=== PATIENT | female | born 1940 | race Caucasian/White ===

== ENCOUNTER 2017-10-17 23:28 | Inpatient (IN) | payer MEDICARE, BC ==
[~2017-10-17] VITALS: Ht 162.6 cm; Wt 67.1 kg
[~2017-10-17 23:28] MED LIST: ALPRAZOLAM 0.0.25 MG PO; ASPIRIN325; ASPIRIN325 PO; AVELOX 400 MG400 M1 PO; AZITHROMYCIN 2250 MG PO; CEFDINIR300 MG PO; COMBIVENT; COUGH MEDICATION; DUONEB 2.5-0.5 M3 ML INH; GLUCOPHAGE500 MG PO; GLYBURIDE 2.52.5 MG PO; KEFLEX500 MG PO; LEVAQUIN 500 M500 M4 PO; LISINOPRIL5 MG PO; PREDNISONE 10 M10 M1 PO; PREDNISONE 10 M10 MG PO; VENTOLIN HFA 1818 GM INH; [UNRECOGNIZED DRUG - OTHER]; [UNRECOGNIZED DRUG - OTHER] PO
[2017-10-17 23:29] VITALS: BP 145/75
[2017-10-17] MEDS ORDERED: AMARYL4 MG PO (23:39)
[2017-10-17 23:49] LABS: ABSOLUTE BASOPHILS 0.1 thou/uL (0.0-0.2); ABSOLUTE EOSINOPHILS 0.2 thou/uL (0.0-0.7); ABSOLUTE LYMPHOCYTES 1.8 thou/uL (0.8-5.3); ABSOLUTE MONOCYTES 0.5 thou/uL (0.0-1.2); ABSOLUTE NEUTROPHILS 7.1 thou/uL (1.6-8.1); BASOPHILS 0.8 %; HEMOGLOBIN 13.2 gm/dL (12.0-15.0); LYMPHOCYTES 18.4 %; MCH 30.4 pg (26.0-34.0); MONOCYTES 5.1 %; MPV 7.2 fl. (7.2-11.1); NUCLEATED RBCS 0 /100WBC; PLATELET COUNT* 238 thou/uL (150-400); POLYS 73.7 %; RBC 4.35 mil/uL (4.20-5.00); RDW-CV 14.1 % (10.5-14.5); WBC 9.7 thou/uL (4.0-11.0)
[2017-10-17 23:57] LABS: CREATININE 1.1 mg/dL (0.6-1.3); POTASSIUM 4.4 mmol/L (3.5-5.1)
[2017-10-18] VITALS (17 sets, daily range): BP systolic 109–153; BP diastolic 45–71
[2017-10-18] LABS: PROTIME 9.4 Seconds (9.20-11.50)
[2017-10-18 00:02] LABS: URINE BILIRUBIN NEGATIVE (Negative); URINE BLOOD TRACE (Negative); URINE CLARITY CLEAR; URINE COLOR YELLOW; URINE GLUCOSE-RANDOM NEGATIVE (Negative); URINE KETONES NEGATIVE (Negative); URINE LEUKOCYTES-REFLEX 1+ (Negative); URINE NITRITE-REFLEX NEGATIVE (Negative); URINE PROTEIN NEGATIVE (Negative); URINE UROBILINOGEN 0.2 E.U./dl (0.2-1.0)
[2017-10-18 00:08] LABS: ALBUMIN 3.5 g/dL (3.4-5.0); TOTAL BILIRUBIN 0.2 mg/dL (<0.1-1.0); TROPONIN-I LEVEL 0.21 ng/mL (<0.06)
[2017-10-18 00:28] LABS: BACTERIA-REFLEX >30 Many /HPF (None Seen); CASTS None Seen /LPF (None Seen); CRYSTALS None Seen /LPF (None Seen); MUCUS 0-3 Light strn/LPF (None Seen); SQUAMOUS 0-3 Few /LPF (0-3); URINE RBC 3-10 Few /HPF (0-2); URINE WBC-REFLEX >25 Many /HPF (0-5); WBC CLUMPS Few (None Seen)
--- NOTE | 2017-10-18 06:18 | NUR ---
RECEIVED REPORT FROM ED NURSE. PT TRANSFERRED TO ROOM 215 VIA CART. PT A&OX4. VSS. ADMISSION HISTORY & ASSESSMENT COMPLETED AND CHARTED. PT ON O2 VIA NC @ 2LPM. PT TRACING SR ON TELE. PT ON HEPARIN DRIP PER MAY. PT ORIENTED TO ROOM/ CALL LIGHT. PT COMPLAINED OF CHEST PAIN WITH PAIN SCALE OF 2/10. INSTRUCTED ON NPO FOR CARDIO CONSULT. PT HAS CRITICAL RESULT-TROPONIN 5.11-DR MONTERO INFORMED WITH NO NEW ORDER. CALL LIGHT WITHIN REACH.BED IN LOW POSITION.
--- NOTE | 2017-10-18 13:25 | EKG ---
[place] [address] ELECTROCARDIOGRAM REPORT Name: RAYMOND RODRIGUES Room: [address] ADM IN .R.#: [id number] Admission: 10/18/17 Attend Phys: Demetrio Vincent MD Discharge: Date of : 40 Report #: [id number] THIS REPORT FOR: //name// [facility] ED Test Date: 2017-10-17 Test Time: 23:31:15 Pat Name: RAYMOND RODRIGUES Department: Room: [facility] Gender: F Manager Of Quality: : 1940 Requested By: Connie Beltran Order Number: [id number] MD: Jose Roberto Brenner Measurements Intervals [place] Rate: 95 P: 68 CT: 196 QRS: -45 QRSD: 90 T: 107 QT: 330 QTc: 415 Interpretive Statements Sinus rhythm Atrial premature complex Probable left atrial enlargement Left anterior fascicular block Anteroseptal infarct, age indeterminate Compared to ECG 10/03/2016 21:04:57 Atrial premature complex(es) now present Myocardial infarct finding still present Electronically Signed On 10-18-2017 13:24:44 CDT by Jose Roberto Brenner [email or web address] <ELECTRONICALLY SIGNED> By: Jose Roberto Brenner MD, [facility] 10/18/17 1324 2331 2331 Jose Roberto Brenner MD, [facility] /EPI
--- NOTE | 2017-10-18 13:25 | EKG ---
[place] [address] ELECTROCARDIOGRAM REPORT Name: RAYMOND RODRIGUES Room: [address] ADM IN .R.#: [id number] Admission: 10/18/17 Attend Phys: Demetrio Vincent MD Discharge: Date of : 40 Report #: [id number] THIS REPORT FOR: //name// [facility] ED Test Date: 2017-10-18 Test Time: 00:43:11 Pat Name: RAYMOND RODRIGUES Department: Room: [facility] Gender: F Multifocal Lens Assembler: : 1940 Requested By: Connie Beltran Order Number: [id number] MD: Jose Roberto Brenner Measurements Intervals [place] Rate: 72 P: 69 [place]: 196 QRS: -35 QRSD: 84 T: 122 QT: 376 QTc: 412 Interpretive Statements Sinus rhythm Atrial premature complex Probable left atrial enlargement Left axis deviation Anteroseptal infarct, age indeterminate Electronically Signed On 10-18-2017 13:25:24 CDT by Jose Roberto Brenner [email or web address] <ELECTRONICALLY SIGNED> By: Jose Roberto Brenner MD, [facility] 10/18/17 1325 0043 0043 Jose Roberto Brenner MD, FAC /EPI
--- NOTE | 2017-10-18 13:29 | EKG ---
[place] [address] ELECTROCARDIOGRAM REPORT Name: RAYMOND RODRIGUES Room: [address] ADM IN M.R.#: [id number] Admission: 10/18/17 Attend Phys: Demetrio Vincent MD Discharge: Date of : 40 Report #: [id number] THIS REPORT FOR: //name// [facility] Test Date: 2017-10-18 Test Time: 11:49:13 Pat Name: RAYMOND RODRIGUES Department: Room: [address] Gender: F Director Of Education: : 1940 Requested By: Jose Roberto Brenner Order Number: [id number] Carolyne MD: Jose Roberto Brenner Measurements Intervals [place] Rate: 63 P: 47 [place]: 199 QRS: -41 QRSD: 82 T: 83 QT: 451 QTc: 462 Interpretive Statements Sinus rhythm Probable left atrial enlargement Left anterior fascicular block Anteroseptal infarct, age indeterminate Electronically Signed On 10-18-2017 13:29:00 CDT by Jose Roberto Brenner [email or web address] <ELECTRONICALLY SIGNED> By: Jose Roberto Brenner MD, [facility] 10/18/17 1329 1149 1149 Jose Roberto Brenner MD, FAC /EPI
--- NOTE | 2017-10-18 15:46 | NUR ---
Pt is A&O. Resides at home alone. Independent with ADLs. No DME. Hx of [facility]. No hx of SNF. Pt stated that she will dc to home tomorrow. No needs.
--- NOTE | 2017-10-18 17:52 | NUR ---
RECEIVED REPORT FROM REBECA SEO. ASSUMED CARE OF PT AROUND O730. PT A&O X4. VSS. O2 SAT 94% ON 2L PER NC THIS AM, PT TITRATED UP TO 3L PER NC AFTER CARDIAC CATH. CARDIAC MOITOR IN PLACE TRACING SR WITH NO CHANGES THIS SHIFT. AM ASSESSMENT AND VITALS COMPLETED CHARTED. IV TO RIGHT FA INTACT AND INFUSING IVF. PT HAS DENIED PAIN OR DISCOMFORT THROUGHOUT THE SHIFT. PT WENT DOWN FOR CARDIAC CATH AROUND 0900 THIS AM AND RETURNED AROUND 1100, RIGHT GROIN SITE CDI, NO HEMATOMA, SOFT AND NON-TENDER. PT OFF BEDREST NOW. UP WITH SBA TO BATHROOM, VOIDING WITHOUT ISSUE. FAMILY VISITED THIS AFTERNOON. PT EATING AND DRINKING WITHOUT ISSUE. PT HAS HAD NO CHEST PAIN THIS SHIFT. PT CURRENTLY RESTING IN BED WATCHIN TV. FALL PRECAUTIONS IN PLACE. CALL LIGHT IS WITHIN REACH. HOURLY ROUNDING PERFORMED. WCTM FOR DURATION OF SHIFT.
--- NOTE | 2017-10-18 18:03 | CARD ---
[address] [address] CARDIAC CATH REPORT Name: RAYMOND RODRIGUES Masha Room: [address] IN [facility]#: [id number] Admission: 10/18/17 Attend Phys: Demetrio Vincent MD Discharge: Date of : 40 Report #: [id number] THIS REPORT FOR: //name// APPROVED REPORT Study performed: 10/18/2017 08:41:02 Patient Details Patient Status: In-Patient Room #: The patient is a 77 year-old female Event Personnel Jose Roberto Brenner Glassblower, Elvira Soto RN Attendant Honor Bar, Lauren Baker RTR ScrubKirsty Jessica RTR Monitor, Rashard Mead ARRT (R) Monitor Procedures Performed Left Heart Catheterization including Bypass Grafts, PTCA with Stenting Indication Non-STEMI , Chest pain Risk Factors Arterial Hypertension, Hypercholesterolemia Previous Procedures/Diagnoses Previous CABG Admission/Lab Medications/Medications given during procedure Glycoprotein IllbIlla Inhibitors, Heparin Unfract. Procedure Narrative The patient was brought electively to the Cardiac Catheterization Laboratory and was prepped and draped in a sterile manner. The right femoral was infiltrated with 2% Lidocaine subcutaneous anesthesia. A 6fr Ultimum Sheath sheath was inserted into the right femoral artery. Coronary angiography was performed using coronary diagnostic catheters. The right coronary system was accessed and visualized with a 6 FR JR4 catheter. The left coronary system was accessed and visualized with a 6 FR JL4 catheter. The left ventricle was accessed and visualized with a 6 FR PIGTAIL catheter. Left ventricular/Aortic Valve gradient assessed via catheter pullback. Left ventriculogram was performed in TRUJILLO projection. [place] [address] CARDIAC CATH REPORT Name: RAYMOND RODRIGUES Room: [address]#: [id number] Admission: 10/18/17 Attend Phys: Demetrio Vincent MD Discharge: Date of : 40 Report #: [id number] was performed. Pre-demployment femoral angiogram was performed . Closure device was deployed with a 6Fr Fr Angioseal STS 6Fr. The patient tolerated the procedure well and there were no complications associated with the procedure. There was no hematoma. single SVG identified with the jr4 catheter and appeared to be chronicall occluded. Heck graft was cannulated with a 6 fr heck catheter. Intraoperative Conscious Sedation Sedation start time: 9:25 Case end Time: 10:36 Versed 2 mg Fluoro Time: 13.7 minutes Dose: DAP 53088 cGycm2 1084 mGy Contrast Type and Amount: Omnipaque 230 ml Coronary Angiography The patient's coronary anatomy is right dominant. Nikolai Artery Percent Stenosis Patent heck graft noted to the lad, although retrograde filled a diagonal branch and a 90% stenosis noted in the lad before the diagonal artery. A single SVG was identified that appeared to extend toward the circumflex and appeared chronically occluded Diagnostic Cath Left Main 90% distal stenosis noted LAD 90% proximal stenosis Circumflex 90% proximal stenosis and 90% stenosis after a small marginal branch OM2 100% occluded and filled by collaterals Right Coronary 60% proximal, 90% mid, and 90% after the RV branch Left Ventriculography The left ventricular ejection fraction is estimated to be 60-65%. Left ventricular wall motion abnormalities are not present. There is 1+ mitral insufficiency. aortic root injection appeared to show no patent svg's and no AI Hemodynamics The aortic pressure is 130/50 mmHg with a mean of 81 mmHg. The left ventricular pressure is 108/-1 mmHg with a mean of mmHg. The left ventricular end diastolic pressure is 12 mmHg. There was no gradient across the aortic valve upon pullback[place] [address] CARDIAC CATH REPORT Name: RAVIRAYMOND Masha Room: [address]#: [id number] Admission: 10/18/17 Attend Phys: Demetrio Vincent MD Discharge: Date of : 40 Report #: [id number] ventricle to the aorta revealed no gradient across the aortic valve. PCI Technique Lesion Anticoagulation was achieved with Heparin and Aggrastat. Patient was preloaded with Plavix. Percutaneous coronary intervention was performed on the mid right coronary artery. The lesion stenosis prior to intervention was 90% with GUILLE 3 flow. A jr4 Guide Catheter was used to engage the rca ostium. A Whisper Wire 190CM Interventional Guidewire was used to cross the lesion. BALLOON DILATION A Balloon catheter Trek RX 2.5 X 12 was inserted and inflated up to 12.00atm for 14seconds. Repeat angiography revealed the following post-dilatation results: 80% stenosis. Additional Inflation: 14.00atm for 13seconds. unable to advance BMW wire beyond stenosis, but whisper wire was successful STENT DEPLOYMENT A drug-eluting stent Xience Alpine RX 3.0X38 was inserted and inflated up to 12.00atm for 14seconds. Repeat angiography revealed the following post-stent deployment results: 0% stenosis. Additional Inflation: 18.00atm for 21seconds. Additional Inflation: 20.00atm for 17seconds. Final angiography reveals 0 % stenosis with GUILLE 3 flow. Conclusion 1. 90% stenosis of the distal left main, proximal lad, and proximal circumflex 2. 2 sequential 90% stenosis noted in the rca 3. patent heck graft to the lad 4. all svg's appeared to be chronically occluded 5. successful placement of a long drug eluting stent in the rca Recommendations return in 1 week for stenting to the left main and proximal circumflex Medications Administered Clopidogrel <ELECTRONICALLY SIGNED> By: Jose Roberto Brenner MD, FACC 10/18/171802 02 1803Dmarcia Brenner MD, FAC /INF
[2017-10-19] VITALS (9 sets, daily range): BP systolic 99–155; BP diastolic 43–66
[2017-10-19 03:24] LABS: HEMATOCRIT 35.9 % (37.0-47.0); HEMOGLOBIN 11.8 gm/dL (12.0-15.0); MCH 30.5 pg (26.0-34.0); MCHC 32.8 g/dL (28.0-37.0); MCV 93.2 fL (80.0-100.0); MPV 7.5 fl. (7.2-11.1); RBC 3.85 mil/uL (4.20-5.00); RDW-CV 14.6 % (10.5-14.5); WBC 6.8 thou/uL (4.0-11.0)
[2017-10-19 03:51] LABS: ANION GAP 8 mmol/L (7-16); BUN 15 mg/dL (7-18); CALCIUM 8.4 mg/dL (8.5-10.1); CHLORIDE 107 mmol/L (98-107); CHOLESTEROL 201 mg/dL (<200); CO2 27 mmol/L (21-32); CREATININE 0.7 mg/dL (0.6-1.3); GLUCOSE 118 mg/dL (70-99); HDL CHOLESTEROL 41 mg/dL (>40); LDL CHOLESTEROL 136 mg/dL (<100); MAGNESIUM 1.8 mg/dL (1.8-2.4); POTASSIUM 4.6 mmol/L (3.5-5.1); SODIUM 142 mmol/L (136-145); TC:HDL 4.9 Ratio (Not establshd); TRIGLYCERIDE 124 mg/dL (<150); VLDL 25 mg/dL (<40)
[2017-10-19 03:52] LABS: SERUM ASSESSMENT Clear
--- NOTE | 2017-10-19 06:14 | NUR ---
ASSUMED CARE OF PT AFTER REPORT AT 1930. PT A&OX4. VSS. PHYSICAL ASSESSMENT COMPLETED AND CHARTED. PT ON NC 2L WITH 92% O2 SAT. PT TRACING SB ON TELE. PT UP STANDBY ASSIST. POST CATH SITE TO LEFT GROIN CLEAN, DRY & INTACT WITH SOME BRUISING AND NON TENDER.DENIES ANY PAIN OR COMLPAIN. HOURLY ROUNDING OBSERVED.HS REST & SAFETY GOAL ACHIEVED. CALL LIGHT WITHIN REACH. BED IN LOW POSITION.
--- NOTE | 2017-10-19 08:10 | NUR ---
PT RESTIUNG IN BED, APPEARS ALERT O X 4, DENIES CHEST PAIN, SOB, PAIN OR DISCOMFORT, R GROIN CATH SITE APPEARS SOFT INTACT WITHOUT EVIDENCE OF BLEEDING ,R FOOT WARM , O2 AT 2L PER NC, PT HOPING TO D/C THIS AM, PLAN ON REPEAT CATH NEXT WEEK, WILL NEED ADDITIONAL STENT PLACEMENT PER REPORT
--- NOTE | 2017-10-19 11:14 | EKG ---
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 Arranger: ARUN : 1940 Requested By: Jose Roberto Brenner Order Number: [id number] Reading MD: Chapito Weinstein Measurements Intervals [place] Rate: 62 P: 67 [place]: 190 QRS: -37 QRSD: 82 T: 79 QT: 428 QTc: 435 Interpretive Statements Sinus rhythm Probable left atrial enlargement Left axis deviation Anteroseptal infarct, age indeterminate Compared to ECG 10/18/2017 11:49:13 Left-axis deviation now present Left anterior fascicular block no longer present Myocardial infarct finding still present Electronically Signed On 10-19-2017 11:14:19 CDT by Chapito Weinstein [email or web address] <ELECTRONICALLY SIGNED> By: Gemma Weinstein MD, [facility] 10/19/17 1114 0656 0656 Gemam Weinstein MD, [facility] /EPI
[2017-10-19] MEDS ORDERED: NITROGLYCERIN0.4 MG SUBLING (11:54)
[2017-10-19] MEDS ORDERED: LOPRESSOR25 PO (11:59)
[2017-10-19] MEDS ORDERED: PLAVIX 75 MG TA75 M1 PO (12:01)
[2017-10-19] MEDS ORDERED: ZETIA10 MG PORT (12:04)
[2017-10-19] MEDS ORDERED: AUGMENTIN200 MG/51 PO (12:52)
--- NOTE | 2017-10-22 17:19 | CON ---
[address] [address] CONSULTATION Name: RAVIRAYMOND N Room: [address] IN .R.#: [id number] Admission: 10/18/17 Attend Phys: Demetrio Vincent MD Discharge: 10/19/17 Date of : 40 Report #: [id number] THIS REPORT FOR: //name// CC: Demetrio Jain DATE OF SERVICE: 10/18/2017 HISTORY OF PRESENT ILLNESS: The patient is a 77-year-old single white female who came to the Emergency Room last night complaining of chest pain. The history is obtained from the patient. No old records are available. However, the patient states she presented in 1999 with fatigue. She was found to have coronary artery disease. She underwent quadruple coronary artery bypass surgery at [facility]. She did well with her surgery. She did require thoracentesis. She was previously followed by Dr. Sanders. However, she has not had a stress test nor seen a vice president of news for years. She was actually admitted here to [place] a year ago with bronchitis. She is not very active because of chronic back pain. However, she continues to live by herself and care for herself. She notes that she has only rarely had chest pain. However, 2 nights ago, she had an episode of chest pressure that lasted several hours. Again, last night, she had an episode of chest pressure that made her nauseated. She vomited. She denied any shortness of breath, diaphoresis. The discomfort extended into her arms. She was finally brought by private vehicle to the Emergency Room. She was started on IV heparin. I was asked to see her for further evaluation and treatment. She denied the pain being related to food. She has had no cough or blood in her stool. She denied exertional dyspnea, palpitations, syncope or leg pain. PAST MEDICAL HISTORY: Otherwise significant for appendectomy, hernia repair, hysterectomy, hypertension, diabetes, hyperlipidemia. MEDICATIONS: On admission consisted of metformin, Xanax, aspirin, lisinopril, DuoNeb treatments included provide. ALLERGIES/INTOLERANCES: SHE COULD NOT TOLERATE STATIN IN THE PAST, WHICH MADE HER MUSCLES ACHE. FAMILY HISTORY: Her brother had heart disease. SOCIAL HISTORY: She is , lives in [place]. Quit smoking years ago, rarely drinks alcohol. REVIEW OF SYSTEMS: She apparently had a stroke in 2003, when she fell. She has had no recurrences. She has a history of COPD. No stomach ulcer. No liver disease, no kidney disease, no cancer[place] [address] CONSULTATION Name: RAYMOND RODRIGUES Masha Room: [address] IN ..#: [id number] Admission: 10/18/17 Attend Phys: Demetrio Vincent MD Discharge: 10/19/17 Date of : 40 Report #: [id number] PHYSICAL EXAMINATION: GENERAL: Elderly, frail-appearing female ,lying in bed. She appeared in no acute distress. VITAL SIGNS: She had a blood pressure of 120/70, pulse 60. She is afebrile. HEENT: She was anicteric, conjunctivae are pink. Mucous membranes are moist. NECK: Veins nondistended. Bilateral carotid bruits were heard. NECK: Supple. CHEST: Clear to auscultation. CARDIOVASCULAR: Regular rate and rhythm, no murmur. ABDOMEN: Soft, nontender. EXTREMITIES: Had no edema. Dorsalis pedis pulses cannot be palpated. SKIN: Cool and dry. NEUROLOGIC: Nonfocal. LYMPH: No adenopathy. MUSCULOSKELETAL: No joint effusions. PSYCHIATRIC: Mood is appropriate. DIAGNOSTIC DATA: Her ECG on admission showed sinus rhythm, ST segment depression of a mm in V4 and V5, that was new since ECG of 09/2016. Her workup in the emergency room last night, she had a portable chest x-ray that showed cardiomegaly, mild pulmonary edema. LABORATORY DATA: Showed sodium 135, creatinine 1.1, glucose 229. Her liver function studies were normal. Troponin on admission was 0.21, this morning at 6.8. Her white blood cell count 9.7, hemoglobin 13.2. IMPRESSION AND RECOMMENDATIONS: 1. Non-ST segment elevation myocardial infarction. Recommend cardiac catheterization. 2. Hypertension. The patient has been on RIOS inhibitor. 3. Diabetes. 4. Hyperlipidemia. THE PATIENT COULD NOT TOLERATE STATIN DRUGS. 5. Previous stroke. Recommend repeat carotid Doppler. 6. Chronic obstructive pulmonary disease. <ELECTRONICALLY SIGNED> By: Jose Roberto Brenner MD, [facility] 10/22/17 1719 0833 1954Dmarcia Brenner MD, FACC /nt
== END 2017-10-19 13:19 | disposition home or self-care (01) | DRG 246 ==
LOC: M.ERS 23:28 → M.TBA-ER 10-18 00:27 → M.2W 10-18 00:27
PROVIDERS: Emergency Medicine; ADMIT Internal Medicine
PROC: 027034Z Dilation of Coronary Artery, One Artery with Drug-eluting Intraluminal Device, Percutaneous Approach (ICD-10-PCS; principal; 2017-10-18)
PROC: B2151ZZ Fluoroscopy of Left Heart using Low Osmolar Contrast (ICD-10-PCS; principal; 2017-10-18)
PROC: B2181ZZ Fluoroscopy of Left Internal Mammary Bypass Graft using Low Osmolar Contrast (ICD-10-PCS; principal; 2017-10-18)
PROC: B2121ZZ Fluoroscopy of Single Coronary Artery Bypass Graft using Low Osmolar Contrast (ICD-10-PCS; principal; 2017-10-18)
PROC: B2111ZZ Fluoroscopy of Multiple Coronary Arteries using Low Osmolar Contrast (ICD-10-PCS; principal; 2017-10-18)
PROC: 4A023N7 Measurement of Cardiac Sampling and Pressure, Left Heart, Percutaneous Approach (ICD-10-PCS; principal; 2017-10-18)
DX: I21.4 Non-ST elevation (NSTEMI) myocardial infarction (principal); N17.0 Acute kidney failure with tubular necrosis; N39.0 Urinary tract infection, site not specified; E78.5 Hyperlipidemia, unspecified; E78.00 Pure hypercholesterolemia, unspecified; I25.82 Chronic total occlusion of coronary artery; I25.10 Atherosclerotic heart disease of native coronary artery without angina pectoris; J44.9 Chronic obstructive pulmonary disease, unspecified; E11.9 Type 2 diabetes mellitus without complications; Z79.2 Long term (current) use of antibiotics; Z86.73 Personal history of transient ischemic attack (TIA), and cerebral infarction without residual deficits; Z79.82 Long term (current) use of aspirin; Z79.899 Other long term (current) drug therapy; Z88.2 Allergy status to sulfonamides; Z95.1 Presence of aortocoronary bypass graft; Z87.891 Personal history of nicotine dependence; Z90.710 Acquired absence of both cervix and uterus; Z82.49 Family history of ischemic heart disease and other diseases of the circulatory system

== ENCOUNTER 2017-10-25 07:42 | Inpatient (IN) | payer MEDICARE, BC ==
[~2017-10-25] VITALS: Ht 162.6 cm; Wt 63.0 kg
[2017-10-25] VITALS (13 sets, daily range): BP systolic 15–169; BP diastolic 47–67
[~2017-10-25 07:42] MED LIST changes: +AMARYL4 MG PO; +AUGMENTIN200 MG/51 PO; +LOPRESSOR25 PO; +NITROGLYCERIN0.4 MG SUBLING; +PLAVIX 75 MG TA75 M1 PO; +ZETIA10 MG PORT
[2017-10-25 08:36] LABS: HEMATOCRIT 41.2 % (37.0-47.0); HEMOGLOBIN 13.6 gm/dL (12.0-15.0); MCH 30.4 pg (26.0-34.0); MCV 92.1 fL (80.0-100.0); MPV 7.7 fl. (7.2-11.1); RBC 4.48 mil/uL (4.20-5.00); RDW-CV 13.9 % (10.5-14.5); WBC 6.8 thou/uL (4.0-11.0)
[2017-10-25 08:47] LABS: ANION GAP 8 mmol/L (7-16); BUN 17 mg/dL (7-18); CALCIUM 9.1 mg/dL (8.5-10.1); CHLORIDE 102 mmol/L (98-107); CO2 26 mmol/L (21-32); CREATININE 0.7 mg/dL (0.6-1.3); GLUCOSE 177 mg/dL (70-99); POTASSIUM 4.3 mmol/L (3.5-5.1); SODIUM 136 mmol/L (136-145)
[2017-10-25 08:48] LABS: APTT 29.4 Seconds (25.0-31.3)
[2017-10-25 08:52] LABS: ALKALINE PHOSPHATASE 100 U/L (46-116); CHOLESTEROL 217 mg/dL (<200); HDL CHOLESTEROL 40 mg/dL (>40); LDL CHOLESTEROL 138 mg/dL (<100); SGOT 18 U/L (15-37); SGPT 32 U/L (30-65); TC:HDL 5.4 Ratio (Not establshd); TOTAL BILIRUBIN 0.3 mg/dL (<0.1-1.0); TOTAL PROTEIN 7.8 g/dL (6.4-8.2); TRIGLYCERIDE 199 mg/dL (<150); VLDL 40 mg/dL (<40)
[2017-10-25 08:54] LABS: SERUM ASSESSMENT Clear
--- NOTE | 2017-10-25 15:15 | EKG ---
[place] [address] ELECTROCARDIOGRAM REPORT Name: RAVIRAYMOND Masha Room: [address] ADM IN [facility].#: [id number] Admission: 10/25/17 Attend Phys: Jose Roberto Brenner MD, F Discharge: Date of : 40 Report #: [id number] THIS REPORT FOR: //name// [facility] Test Date: 2017-10-25 Test Time: 08:15:04 Pat Name: RAYMOND RODRIGUES Department: Room: [facility] Gender: F Document Management Technician: : 1940 Requested By: Jose Roberto Brenner Order Number: [id number] Reading MD: Jose Roberto Brenner Measurements Intervals [place] Rate: 46 P: 0 [place]: 199 QRS: -29 QRSD: 91 T: 75 QT: 481 QTc: 421 Interpretive Statements Sinus bradycardia Probable left atrial enlargement Borderline left axis deviation Anteroseptal infarct, old Nonspecific T abnormalities, lateral leads Compared to ECG 10/19/2017 06:56:27 T-wave abnormality now present Sinus rhythm no longer present Myocardial infarct finding still present Electronically Signed On 10-25-2017 15:15:01 CDT by Jose Roberto Brenner [email or web address] <ELECTRONICALLY SIGNED> By: Jose Roberto Brenner MD, [facility] 10/25/17 1515 4 4 Jose Roberto Brenner MD, [facility] /EPI
--- NOTE | 2017-10-25 15:24 | EKG ---
[place] [address] ELECTROCARDIOGRAM REPORT Name: RAYMOND RODRIGUES Room: [address] ADM IN ..#: [id number] Admission: 10/25/17 Attend Phys: Jose Roberto Brenner MD, F Discharge: Date of : 40 Report #: [id number] THIS REPORT FOR: //name// [facility] Test Date: 2017-10-25 Test Time: 14:36:09 Pat Name: RAYMOND RODRIGUES Department: Room: [address] Gender: F Recruitment Advertising Manager: : 1940 Requested By: Jose Roberto Brenner Order Number: [id number] Reading MD: Jose Roberto Brenner Measurements Intervals [place] Rate: 51 P: 72 [place]: 207 QRS: -34 QRSD: 90 T: 102 QT: 439 QTc: 405 Interpretive Statements Sinus bradycardia Probable left atrial enlargement Left axis deviation Anteroseptal infarct, age indeterminate Electronically Signed On 10-25-2017 15:24:38 CDT by Jose Roberto Brenner [email or web address] <ELECTRONICALLY SIGNED> By: Jose Roberto Brenner MD, [facility] 10/25/17 1524 1436 1436 Jose Roberto Brenner MD, FACC /EPI
--- NOTE | 2017-10-25 16:34 | CARD ---
[address] [address] CARDIAC CATH REPORT Name: RAYMOND RODRIGUES Masha Room: [address] IN [facility]#: [id number] Admission: 10/25/17 Attend Phys: Jose Roberto Brenner MD, F Discharge: Date of : 40 Report #: [id number] THIS REPORT FOR: //name// APPROVED REPORT Study performed: 10/25/2017 10:07:16 Patient Details Patient Status: Out-Patient Room #: The patient is a 77 year-old female Event Personnel Jose Roberto Brenner Sunglass Clip Attacher, Rashard Mead (Kirsty Ng Jessica RTR Monitor, Ghada Carrington RN Software Technical Lead, Gypsy Don RN Software Technical Lead Procedures Performed Art Access - L femoral artery* Left Heart Cath Coronaries, Bypass Grafts LHCCORCABG BMS Revasc Grafts Single CIRC BMREVSVGSG BMS Revasc 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 Procedure Narrative The patient was brought electively to the Cardiac Catheterization Laboratory and was prepped and draped in a sterile manner. The left femoral was infiltrated with 2% Lidocaine subcutaneous anesthesia. A 6fr Ultimum Sheath sheath was inserted into the left femoral artery. Coronary angiography was performed using coronary diagnostic catheters. The right coronary system was accessed and visualized with a JR4 6FR catheter. The left coronary system was accessed and visualized with a 6FR XB 3.5 100CM catheter. Left ventricular/Aortic Valve gradient assessed via catheter pullback. Closure device was deployed with a 6 Fr Angioseal STS 6Fr. The patient tolerated the procedure well and there were [place] [address] CARDIAC CATH REPORT Name: RAVIRAYMOND Masha Room: [address]#: [id number] Admission: 10/25/17 Attend Phys: Jose Roberto Brenner MD, F Discharge: Date of : 40 Report #: [id number] procedure. There was no hematoma. Intraoperative Conscious Sedation Sedation start time: 10:50 Case end Time: 12:00 Versed 2 mg Fluoro Time: 13.1 minutes Dose: DAP [id number] cGycm2 1513 mGy Contrast Type and Amount: Omnipaque 290 ml Coronary Angiography The patient's coronary anatomy is right dominant. [place] Artery Percent Stenosis Arteriogram 1 week previously had demonstrated a patent TAVAREZ graft to the LAD. All SVG's were felt to be occluded. Diagnostic Cath Left Main 90% distal stenosis LAD 99% proximal stenosis with competitive flow from the TAVAREZ graft Circumflex 95% proximal stenosis and 95% stenosis after a small marginal branch Right Coronary long stent in the mid RCA was patent with a 30% stenosis noted in the mid RCA beyond the stent Left Ventriculography Left Ventriculography was not performed. Hemodynamics The aortic pressure is 135/44 mmHg with a mean of 52 mmHg. The left ventricular pressure is 144/14 mmHg with a mean of mmHg. The left ventricular end diastolic pressure is 14 mmHg. There was no gradient across the aortic valve upon pullback. Pullback from the left ventricle to the aorta revealed no gradient across the aortic valve. PCI Technique Lesion Anticoagulation was achieved with Heparin. Patient was preloaded with Plavix. Percutaneous coronary intervention was performed on the mid circumflex artery segment. The lesion stenosis prior to intervention was 95% with GUILLE 3 flow. A 6FR XB 3.5 100CM Guide Catheter was used to engage the lm ostium. A IG: BMW 300cm Interventional Guidewire was [place] [address] CARDIAC CATH REPORT Name: RAYMOND RODRIGUES Room: [address]#: [id number] Admission: 10/25/17 Attend Phys: Jose Roberto Brenner MD, F Discharge: Date of : 40 Report #: [id number] BALLOON DILATION A Balloon catheter 2.0 x 8 mm was inserted and inflated up to 14.00atm for 16seconds. Repeat angiography revealed the following post-dilatation results: 70% stenosis. Additional Inflation: 16.00atm for 13seconds. Additional Inflation: 18.00atm for 12seconds. Unable to advance stent to area of stenosis. Additional balloon inflations were performed with a 2.25 x 12 mm NC balloon to high pressures because of the calcified vessel. STENT DEPLOYMENT A drug-eluting stent Xience Alpine RX 2.25X12 was inserted and inflated up to 22.00atm for 8seconds. Repeat angiography revealed the following post-stent deployment results: 0% stenosis. Ryan wire was required to advance the stent because of tortuosity of the circumflex Final angiography reveals 0 % stenosis with GUILLE 3 flow. PCI Technique Lesion 2 Percutaneous Coronary Intervention was performed on the proximal circumflex artery segment. Patient was preloaded with Plavix. Percutaneous coronary intervention was performed on the proximal circumflex artery segment. The lesion stenosis prior to intervention was 95% with GUILLE 3 flow. A 6FR XB 3.5 100CM Guide Catheter was used to engage the ostium. A IG: BMW 300cm Interventional Guidewire was used to cross the lesion. Stent Deployment A drug-eluting stent Xience Alpine RX 2.25X12 was inserted and inflated up to 18.00atm for 23seconds. Repeat angiography revealed the following post-stent deployment results: 0% stenosis. Additional Inflation: 22.00atm for 13seconds. Final angiography reveals 0 % stenosis with GUILLE 3 flow. PCI Technique Lesion 3 Percutaneous Coronary Intervention was performed on the LM. Patient was preloaded with Plavix. Percutaneous coronary intervention was performed on the left main coronary artery. The lesion stenosis prior to intervention was 90% with GUILLE 3 flow. A 6FR XB 3.5 100CM Guide Catheter was used to engage the lm ostium. A IG: BMW 190cm Interventional Guidewire was used to cross the lesion. Stent Deployment A drug-eluting stent Xience Alpine RX 2.5X18 was inserted and inflated up to 9.00atm for 18seconds. Additional Inflation: 18.00atm [address] [address] CARDIAC CATH REPORT Name: RAYMOND RODRIGUES Room: [address] IN Jose.Kaela.#: [id number] Admission: 10/25/17 Attend Phys: Jose Roberto Brenner MD, F Discharge: Date of : 40 Report #: [id number] for 18seconds. Final angiography reveals 0 % stenosis with GUILLE 3 flow. Conclusion 1. patent stent in the RCA 2. successful placement of 3 drug eluting stents that extended from the left main artery into the mid circumflex artery Recommendations Cardiac Rehabilitation Referral Aggressive Medical Therapy Medications Administered Clopidogrel <ELECTRONICALLY SIGNED> By: Jose Roberto Brenner MD, FACC 10/25/17 1634 1634 1634Dmarcia Brenner MD, FACC /INF
--- NOTE | 2017-10-25 18:27 | NUR ---
PT ADMITTED TO ROOM 200 VIA BED AT APPROXIMATELY 1400 FROM [employer]. REPORT RECEIVED FROM GABBI CHAPMAN. PT HAD HEART CATH INTO LEFT GROIN-AREA IS C/D/I WITH SMALL DRIED BLOOD NOTED ON DRESSING. PT COMPLETED BEDREST AND IS NOW GETTING UP WITH 1 ASSIST TO BATHROOM. POST CARDIAC CATH VITALS CHARTED ON FLOOR AND IN CARDIAC [employer]. VITAL SIGNS STABLE. PT A&0X4, DENIES ANY PAIN OR SHORTNESS OF BREATH. TRACING SB ON THE HOUSEMAN. RATE IN THE 50'S. PT ON RA SAT UPPER 90'S. IVF. INPATIENT CARDIAC REHAB HERE TO SEE AND EDUCATE PT. PT ORIENTED TO ROOM AND CALL LIGHT. ADMISSION ASSESSMENT AND HISTORY COMPLETED. REFER TO CHARTING. SEPSIS SCREENING COMPLETE-NEGATIVE. PROBABLE DISCHARGE HOME TOMORROW 10/26. MEDICATIONS PER MAY. PT REPOSITIONS SELF WITH REMINDERS. HOURLY ROUNDING OBSERVED. BED IN LOW POSITION. CALL LIGHT WITHIN REACH. WILL CONTINUE PLAN OF CARE.
[2017-10-26] VITALS: BP 123/69
[2017-10-26 04:00] VITALS: BP 153/63
--- NOTE | 2017-10-26 04:56 | NUR ---
ASSUMED CARE OF PATIENT AT 1900 THE PATIENT REMAINS SB ON THE MONITOR AT REST NOTED IMPROVES TO SR WHEN AWAKE ET AMBULATING O2 SAT MAINTAINED ON RA UP WITH STANDBY ASSIST OF 1 POST CATH GAIT STEADY WITHOUT HX OF FALLS ALLOWED PATIENT TO REVERT TO AMBULATING AD LEXI IN ROOM THE ROUTINE REGIMEN CONTINUES TO BE EFFECTIVE FOR SX MANAGEMENT THE PATIENT PROGRESSES TOWARDS GOALS OF DISCHAARGE SAFETY INTERVENTIONS CONTINUE BED LOWERED WHEELS LOCKED CALL LIGHT IN REACH SIDE RAILS UP REPORT TO BE GIVEN TO [employer] [employer]
[2017-10-26 05:42] LABS: HEMATOCRIT 38.1 % (37.0-47.0); HEMOGLOBIN 12.4 gm/dL (12.0-15.0); MCHC 32.6 g/dL (28.0-37.0); MPV 7.9 fl. (7.2-11.1); RBC 4.14 mil/uL (4.20-5.00); RDW-CV 14.2 % (10.5-14.5); WBC 7.9 thou/uL (4.0-11.0)
[2017-10-26 08:00] VITALS: BP 147/55
[2017-10-26] MEDS ORDERED: BAYER CHEWABLE81 MG PO (10:45)
[2017-10-26 10:51] VITALS: BP 147/55
[2017-10-26 10:58] VITALS: BP 147/55
[2017-10-26] MEDS ORDERED: TYLENOL325 MG PO (11:04)
--- NOTE | 2017-10-26 11:06 | NUR ---
ASSUMED CARE OF PATIENT THIS AM AT 0730. PATIENT IS ALERT AND ORIENTED X 1. SHE DENIES PAIN THIS AM. PATIENT IS ANXIOUS TO DISCHARGE HOME. DR ALEGRIA IN TO ROUND AND DISCHARGE ORDERS WRITTEN. PATIENT IS TO DISCHARGE HOME TODAY. TELE MONITOR SHOWED NSR.
[2017-10-26 12:12] VITALS: BP 134/53
--- NOTE | 2017-10-26 13:36 | EKG ---
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 : 1940 Requested By: Jose Roberto Brenner Order Number: [id number] Reading MD: Jose Roberto Brenner Measurements Intervals [place] Rate: 62 P: 68 OK: 156 QRS: -27 QRSD: 93 T: 105 QT: 441 QTc: 448 Interpretive Statements Sinus rhythm Borderline left axis deviation Anterior infarct, old Nonspecific T abnormalities, lateral leads Compared to ECG 10/25/2017 14:36:09 Sinus bradycardia no longer present Myocardial infarct finding still present Electronically Signed On 10-26-2017 13:36:41 CDT by Jose Roberto Brenner [email or web address] <ELECTRONICALLY SIGNED> By: Jose Roberto Brenner MD, [facility] 10/26/17 1336 0354 0354 Jose Roberto Brenner MD, [facility] /EPI
--- NOTE | 2017-10-27 13:30 | D ---
[address] [address] DISCHARGE SUMMARY Name: RAYMOND RODRIGUES Masha Room: [address] IN M.R.#: [id number] Admission: 10/25/17 Attend Phys: Jose Roberto Brenner MD, F Discharge: 10/26/17 Date of : 40 Report #: [id number] THIS REPORT FOR: //name// CC: Jose Roberto Jain DATE OF SERVICE: 10/26/2017 DISCHARGE DIAGNOSES: 1. Unstable angina. 2. Coronary artery disease. 3. Hypertension. 4. Diabetes. 5. Hyperlipidemia. CONSULTANTS: None. PROCEDURES: Left heart catheterization with placement of 3 drug-eluting stents in the left main artery and circumflex artery via the femoral approach. PRIMARY CARE PHYSICIAN: Dr. Víctor Jain. HISTORY OF PRESENT ILLNESS: The patient is a 77-year-old single white female who was brought to the outpatient department to undergo coronary artery stenting. The patient underwent quadruple coronary artery bypass surgery at [facility] in 1999. The patient has not seen a diathermy equipment repairer for years. She is not very active because of her age and chronic back pain; however, she still lives by herself. She only rarely has chest pain. However, she was admitted on 10/17 after prolonged episode of chest pressure. She became nauseated and vomited. The pain extended into her arms. She called the ambulance and brought here to [facility] on 10/17. She ruled in for a non-STEMI with a troponin of 6.8. I saw her in consultation and felt that she had an indication for cardiac catheterization. This was performed on 10/18 from the right femoral artery. Results showed an ejection fraction of 60-65%. No saphenous vein grafts were identified. There was a patent TAVAREZ graft to the LAD, although retrograde it filled the diagonal branch, and there was a 90% stenosis prior to the takeoff of the diagonal. The left main artery had a distal 90% stenosis. The LAD had a proximal 90% stenosis with competitive flow from the TAVAREZ graft. Circumflex had a proximal 90% stenosis and subsequent sequential 90% stenosis prior to a marginal branch. The right coronary artery had 2 sequential 90% stenosis. I then placed two sequential drug-eluting stents in the right coronary artery. She was loaded with Plavix. She tolerated the procedure well. An Angio-Seal was placed in the right femoral artery. She was started on metoprolol. The patient could not tolerate statin in the past. She was therefore placed on Zetia. She was [place] [address] DISCHARGE SUMMARY Name: RAYMOND RODRIGUES Masha Room: [address] IN M.R.#: [id number] Admission: 10/25/17 Attend Phys: Jose Roberto Brenner MD, F Discharge: 10/26/17 Date of : 40 Report #: [id number] elective stenting of the left main and circumflex artery. She notes she has had no further chest pain, shortness of breath, lightheadedness or bleeding since her discharge. PAST MEDICAL HISTORY: Otherwise significant for hernia repair, hysterectomy, hypertension, diabetes, hyperlipidemia. MEDICATIONS: Consisted of metformin, Amaryl, Xanax, aspirin, lisinopril. She could not tolerate statin drugs in the past. PHYSICAL EXAMINATION: VITAL SIGNS: Blood pressure 130/70, pulse is 52. CHEST: Clear to auscultation. CARDIOVASCULAR: Regular rate and rhythm. ABDOMEN: Soft. EXTREMITIES: No edema. SKIN: Warm and dry. LABORATORY DATA: ECG, sinus rhythm. She had episodes of bradycardia with septal Q-waves. She had a carotid Doppler study performed last week that showed less than 50% stenosis. Her chest x-ray showed bilateral infiltrates consistent with pulmonary edema. Her lab work, sodium 136, creatinine 0.7. Liver function studies were normal. Her lab work last week, cholesterol was 217, triglyceride 199, HDL 40, LDL 138. Her white blood cell count 7.9, hemoglobin 12.4. HOSPITAL COURSE: The patient was brought to the outpatient department. I performed left heart catheterization, this time from the left femoral artery. Results showed that the stent in the [place] right coronary artery was widely patent. Arteriogram of the TAVAREZ graft was not performed. Ventriculogram was not performed. Her LVEDP was only 14. The left main artery had a distal 90% stenosis, and there was 2 sequential 95% stenosis in the proximal circumflex artery. She was given heparin. I then placed three drug-eluting stents that cover the left main and proximal circumflex artery. A brianna wire was required because of tortuosity. She also required a noncompliant balloon because of the calcification. The final result showed no significant residual stenosis. An Angio-Seal was placed. Fortunately, she had no further chest pain, arrhythmias or heart failure. The following day, she is ambulating without complaints. There is no hematoma in the left groin. She was discharged to continue her home medications that consisted of aspirin, although I recommended she take only 81 mg a day; Plavix 75 mg a day for at least 1 year; Zetia 10 mg a day since she could not tolerate statin drugs; Amaryl 4 mg a day; lisinopril 5 mg a day for hypertension. She is not to resume her metformin until 10/27, at which time she was to resume 500 mg twice a day. She was taken off the metoprolol because of bradycardia, and she had nitroglycerin to take as needed for chest pain. She was discharged to see my nurse practitioner in 1 week. I recommend she enroll in cardiac rehabilitation. She was to contact my office [place] [address] DISCHARGE SUMMARY Name: RAYMOND RODRIGUES Masha Room: [address]#: [id number] Admission: 10/25/17 Attend Phys: Jose Roberto Bernner MD, F Discharge: 10/26/17 Date of : 40 Report #: [id number] pain or bleeding. I recommended she follow with Dr. Jain for routine medical care including management of her diabetes. Her prognosis is guarded due to her diffuse coronary artery disease and advanced age. <ELECTRONICALLY SIGNED> By: Jose Roberto Brenner MD, FACC 10/27/17 1330 0921 [id number] Brenner MD, FACC /nt
== END 2017-10-26 15:06 | disposition still patient (30) | DRG 247 ==
LOC: M.CL 07:42 → M.TBA-CV 14:32 → M.2W 14:36
PROVIDERS: ADMIT Internal Medicine Cardiovascular Disease
PROC: B2111ZZ Fluoroscopy of Multiple Coronary Arteries using Low Osmolar Contrast (ICD-10-PCS; principal; 2017-10-25)
PROC: 4A023N7 Measurement of Cardiac Sampling and Pressure, Left Heart, Percutaneous Approach (ICD-10-PCS; principal; 2017-10-25)
PROC: 027136Z Dilation of Coronary Artery, Two Arteries with Three Drug-eluting Intraluminal Devices, Percutaneous Approach (ICD-10-PCS; principal; 2017-10-25)
DX: I25.110 Atherosclerotic heart disease of native coronary artery with unstable angina pectoris (principal); I10 Essential (primary) hypertension; E11.9 Type 2 diabetes mellitus without complications; E78.5 Hyperlipidemia, unspecified; G89.29 Other chronic pain; M54.9 Dorsalgia, unspecified; E78.00 Pure hypercholesterolemia, unspecified; Z79.82 Long term (current) use of aspirin; Z90.710 Acquired absence of both cervix and uterus; Z95.1 Presence of aortocoronary bypass graft; Z79.899 Other long term (current) drug therapy